=== PATIENT | female | born 2000 | race African-American/Black ===

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

== ENCOUNTER 2022-10-16 12:18 | Emergency (ER) | payer OTHER, SELFPAY ==
[2022-10-16 12:20] VITALS: BP 111/70; PULSE 65; RESP 14; TEMP 36.4; O2SAT 99; BMI 37.8
[2022-10-16 12:54] VITALS: PULSE 62; O2SAT 99
--- NOTE | 2022-10-16 12:54 | ED_ITS ---
HPI - Head Injury General Chief complaint: Head Injury Stated complaint: x3 ago fell hit head dizzy threw up sat morning Time Seen by Provider: 10/16/22 12:35 Source: patient Mode of arrival: Ambulatory History of Present Illness HPI Narrative: 22-year-old female who 3 days ago hit the back of her head while on a seesaw. The next morning she threw up. Since that time she has had somewhat of a headache, feeling dizzy. Also having nausea but no vomiting. No extremity injuries. 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 No vision changes. Related Data Previous Rx's Medication Instructions Recorded ondansetron 4 mg disintegrating 4 mg PO Q6H PRN nausea and 10/16/22 tablet vomiting #14 tabs Allergies Allergy/AdvReac Type Severity Reaction Status Date / Time No Known Drug Allergies Allergy Verified 10/16/22 12:27 Review of Systems Constitutional Constitutional: Reports system reviewed and no additional complaints, except as documented ENT Ears, Nose, Mouth, and Throat: Reports system reviewed and no additional complaints, except as documented Cardiovascular Cardiovascular: Reports system reviewed and no additional complaints, except as documented Respiratory Respiratory: Reports system reviewed and no additional complaints, except as documented Gastrointestinal Gastrointestinal: Reports system reviewed and no additional complaints, except as documented Musculoskeletal Musculoskeletal: Reports system reviewed and no additional complaints, except as documented Integumentary/Breasts Skin/Breast: Reports system reviewed and no additional complaints, except as documented Neurologic Neurologic: Reports system reviewed and no additional complaints, except as documented Hematologic/Lymphatic On Anticoagulants: No Patient History Medical History Healthy adult Social History Smoking Status: Never smoker Smoking Status: Never smoker alcohol intake frequency: holidays/special occasions only Substance Use Type: does not use Exam Initial Vital Signs Initial Vital Signs: Vital Signs Temperature 97.6 F 10/16/22 12:20 Pulse Rate 65 10/16/22 12:20 Respiratory Rate 14 10/16/22 12:20 Blood Pressure 111/70 10/16/22 12:20 Pulse Oximetry 99 10/16/22 12:20 Oxygen Delivery Method 10/16/22 12:20 Const General: cooperative, healthy appearing and comfortable [facility] Head: normal to inspection and normocephalic Resp Effort & Inspection: normal respiratory effort Cardio Rate: regular rate Skin General: no rashes or lesions noted Neuro General: patient alert, patient awake and moves all extremities Motor: muscle tone normal throughout Extrem General: normal to inspection Scores GCS Melodie coma scale eye opening: Spontaneous [place] coma scale verbal response: Orientated Melodie coma scale motor response: Obey commands Melodie coma scale total score: 15 Course Vital Signs Vital signs: Vital Signs - 8 hr 10/16/ 12:20 Temperature 97.6 F Pulse Rate 65 Respiratory Rate 14 Blood Pressure 111/70 Pulse Oximetry 99 Oxygen Delivery Method Room Air MDM - Head Injury MDM Narrative Medical decision making narrative: History and physical exam is consistent with a concussion. Low suspicion for intracranial hemorrhage/skull fracture. No indication for radiologic studies. Discussed this with the patient. She will contact her medical department for any work-related restrictions. Was given return precautions. She expressed understanding and agreement. Discharge Plan Departure Patient Disposition: Home Clinical Impression: Concussion Instructions: Concussion Activity Restrictions/Additional Instructions: I recommend that you contact your medical department for any long-term work- related restrictions. You can take Tylenol for any headaches. Nausea medication was sent to the [facility] pharmacy return to the emergency department for any new symptoms. Prescriptions: New ondansetron 4 mg tablet,disintegrating 4 mg PO Q6H PRN (Reason: nausea and vomiting) Qty: 14 0RF Referrals: Miscellaneous,Doctor, [Primary Care Provider] - Stand Alone Forms: Work Release Note
[2022-10-16 13:00] VITALS: BP 99/61; PULSE 57; O2SAT 99
[2022-10-16 13:06] VITALS: BP 105/75; PULSE 65; O2SAT 99
== END 2022-10-16 13:12 | disposition home or self-care (01) ==
PROVIDERS: Emergency Provider Emergency Medicine
DX: S06.0X0A Concussion without loss of consciousness, initial encounter (principal); W22.8XXA Striking against or struck by other objects, initial encounter
CPT/HCPCS: 99281

== ENCOUNTER → 2023-01-18 07:59 | Outpatient (CLI) | payer OTHER, SELFPAY ==
--- NOTE | 2023-01-18 | DI.MRI.S_ITS ---
PROCEDURE: MR SHOULDER LT W CON INDICATIONS: SHOULDER PAIN TECHNIQUE: After the administration of 12 mL of dilute intra-articular Gadolinium contrast, oblique coronal T1 and T2 spin echo with fat saturation, oblique sagittal T1 spin echo with and without fat saturation, oblique sagittal T2 fast spin echo with fat saturation, axial T1 spin echo with fat saturation through the shoulder. COMPARISON: None. FINDINGS: Image quality: Excellent. Rotator cuff: Low-grade articular and bursal bursal surface partial thickness tear involving distal supraspinatus near musculotendinous junction is seen. Distal infraspinatus and subscapularis tendons are intact. No full-thickness rotator cuff tendon rupture. No rotator cuff muscle atrophy on sagittal images. Bones and bursae: No bone marrow contusions or fractures. No acromioclavicular joint degeneration. The acromion demonstrates conventional anatomy, without an os acromiale. Capsule and soft tissues: The labrum and glenohumeral ligaments appear intact. The long head of the biceps tendon demonstrates normal location and morphology. The rotator interval appears normal, without fibrosis. The coracohumeral ligament is of normal thickness. No intra-articular bodies. IMPRESSION: 1. Low-grade articular and bursal surface partial thickness tear involving distal supraspinatus near musculotendinous junction. No full-thickness rotator cuff tendon rupture. 2. No marrow edema. No fracture or dislocation. No loose bodies. 3. No evidence of focal labral tear. Dictated by: Pradeep Shukla M.D. on 01/18/2023 at 14:19 Approved by: Pradeep Shukla M.D. on 01/18/2023 at 14:22
--- NOTE | 2023-01-18 | DI.RAD.S_ITS ---
PROCEDURE: FL SHOULDER INJECTION MR/CT LT INDICATIONS: SHOULDER PAIN COMPARISON: none TECHNIQUE: The indications, alternatives, benefits, risks, and complications of the procedure were explained to the patient. Written informed consent was obtained and placed in the chart. The shoulder was examined fluoroscopically and a site for needle placement chosen for entry into the glenohumeral joint from an anterior approach. The skin was prepped and draped in a sterile fashion, and 1% lidocaine infiltrated from skin down to joint capsule. A spinal needle was inserted into the glenohumeral joint, and a small amount of iodinated contrast media injected to confirm intra-articular placement of the needle tip. This was followed by approximately 12 mL dilute solution of a gadolinium containing MR contrast agent. The needle was removed and a dressing was applied. The patient was given postprocedural instructions and sent to the MR suite for MR imaging. FINDINGS: A single fluoroscopic spot image demonstrates intra-articular location of injected iodinated contrast. IMPRESSION: Successful fluoroscopically guided administration of dilute Gadolinium solution into the shoulder joint for MR arthrogram. Dictated by: Esau Almazan M.D. on 01/18/2023 at 9:49 Approved by: Esau Almazan M.D. on 01/18/2023 at 9:50
== END ==
DX: M75.112 Incomplete rotator cuff tear or rupture of left shoulder, not specified as traumatic (principal); M25.512 Pain in left shoulder
CPT/HCPCS: 23350; 73222